=== PATIENT | female | born 1970 | race Caucasian/White ===

== ENCOUNTER 2019-05-08 07:37 | Emergency (ER) | payer SELFPAY ==
[~2019-05-08] VITALS: Ht 160 cm; Wt 67.8 kg
[2019-05-08 07:45] VITALS: BP 123/63; PULSE 76; RESP 18; Ht 160 cm; Wt 67.8 kg
[2019-05-08] MEDS ORDERED: KETOROLAC 60 MG INJ IM STA (07:58)
[2019-05-08] MEDS ORDERED: CYCL10TA7 PO (07:59)
[2019-05-08] MEDS ORDERED: MED4DP PO (07:59)
[2019-05-08] MEDS ORDERED: HYDR-4011 PO (07:59)
[2019-05-08] MEDS ORDERED: NAPR-985 PO (07:59)
[2019-05-08] MEDS ORDERED: DEXAMETHASONE 10 MG/ML 1 ML INJ IM ONE (08:00)
--- NOTE | 2019-05-08 08:25 | ERD ---
ER Documentation Chief Complaint Chief Complaint right lower back pain radiating to right leg, hx sciatica HPI 48-year-old female presenting with pain down her right leg. Patient states she has a history of sciatica under symptoms since they feel the same. She has pain with movement. Denies any numbness or tingling down her legs and denies any changes to urination or bowel movement. Patient took Advil last night but no medication today. She denies any abdominal pain. Denies chest pain or shortness of breath. Denies medical problems. NKDA. Surgical history denies. Social history denies ROS All systems reviewed and are negative except as per history of present illness. Medications Home Meds Active Scripts Cyclobenzaprine Hcl* (Cyclobenzaprine Hcl*) 10 Mg Tablet, 10 MG PO TID, #15 TAB Prov:KEILY ACE PA-C 05/08/19 Naproxen* (Naprosyn*) 500 Mg Tablet, 500 MG PO BID PRN for PAIN AND/OR INFLAMMATION, #30 TAB Prov:KEILY ACE PA-C 05/08/19 Hydrocodone/Acetaminophen (Enterprise 5-325 Tablet) 1 Each Tablet, 1 TAB PO Q6H PRN for PAIN, #7 TAB Prov:KEILY ACE PA-C 05/08/19 Methylprednisolone* (Medrol* DOSE PACK) 4 Mg/Dose-Pack Tab.ds.pk, 4 MG PO . DIRECTED, #1 PACKET Prov:KEILY ACE PA-C 05/08/19 Allergies Allergies: Coded Allergies: No Known Allergy (Unverified , 05/08/19) PMhx/Soc Medical and Surgical Hx: pt denies Medical Hx, pt denies Surgical Hx Hx Alcohol Use: No Hx Substance Use: No Hx Tobacco Use: No Smoking Status: Never smoker FmHx Family History: No diabetes, No coronary disease, No other Physical Exam Vitals Vital Signs Date Temp Pulse Resp B/P (MAP) Pulse Ox O2 O2 Flow FiO2 Time Delivery Rate 05/08/19 97.8 76 18 123/63 100 07:45 (83) Physical Exam GENERAL: The patient is well-appearing, well-nourished, in no acute distress CHEST: Clear to auscultation bilaterally. There are no rales, wheezes or rhonchi. HEART: Regular rate and rhythm. No murmurs, clicks, rubs or gallops. ABDOMEN:Soft, nontender and nondistended. Good bowel sounds. No rebound or guarding. No gross peritonitis. No gross organomegaly or masses. No Lorenzana sign or McBurney point tenderness. BACK: No tenderness to palpation down the right paraspinous muscle extending down her right buttocks. EXTREMITIES: Equal pulses bilaterally. There is no peripheral clubbing, cyanosis or edema. No focal swelling or erythema. Full range of motion. Grossly neurovascularly intact. NEUROLOGIC: Alert and oriented. Cranial nerves II through XII intact. Motor strength in all 4 extremities with 5 out of 5 strength. Sensation grossly intact. Normal speech and gait. Babinski negative. DTR 2+ throughout. SKIN: There is no apparent rash or petechiae. The skin is warm and dry. Results 24 hrs Laboratory Tests Test 05/08/19 08:11 POC Beta HCG, Qualitative NEGATIVE Current Medications Medications Dose Sig/Milo Start Time Status Last (Trade) Ordered Route PRN Stop Time Admin Dose Reason Admin Ketorolac 60 mg ONCE STAT 05/08/19 DC 05/08/19 Tromethamine IM 07:58 08:13 (Toradol) 05/08/19 07:59 10 mg ONCE ONCE 05/08/19 DC 05/08/19 Dexamethasone IM 08:00 08:13 (Decadron) 05/08/19 08:01 Procedures/MDM ER course: Decadron and Toradol given ED. Patient is driving so no Valium was given. MDM: 48-year-old female presenting with back pain. I have low suspicion for discitis or epidural abscess. Patient does not have midline tenderness and vitals are stable. I have low suspicion for acute fracture dislocation as patient has no history of traumatic injury. I have low suspicion for cauda equina as patient has normal strength to the lower extremities. No saddle anesthesia normal urination bowel movement. Patient is discharged with supportive medications and told to follow-up with primary care within 1 to 2 days for close evaluation. She is told if symptoms to the ER. All questions answered at discharge Departure Diagnosis: Primary Impression: Back pain Condition: Stable Patient Instructions: Back Pain W/ Sciatica Referrals: [facility] YOU HAVE RECEIVED A MEDICAL SCREENING EXAM AND THE RESULTS INDICATE THAT YOU DO NOT HAVE A CONDITION THAT REQUIRES URGENT TREATMENT IN THE EMERGENCY DEPARTMENT. FURTHER EVALUATION AND TREATMENT OF YOUR CONDITION CAN WAIT UNTIL YOU ARE SEEN IN YOUR DOCTORS OFFICE WITHIN THE NEXT 1-2 DAYS. IT IS YOUR RESPONSIBILITY TO MAKE AN APPOINTMENT FOR FOLOW-UP CARE. IF YOU HAVE A PRIMARY DOCTOR --you should call your primary doctor and schedule an appointment IF YOU DO NOT HAVE A PRIMARY DOCTOR YOU CAN CALL OUR PHYSICIAN REFERRAL HOTLINE AT IF YOU CAN NOT AFFORD TO SEE A PHYSICIAN YOU CAN CHOSE FROM THE FOLLOWING [facility] [address] [facility] [address] [facility] [facility] [address] [facility] [address] [facility] [address] [facility]. [facility]. [address] Additional Instructions: FOLLOW UP WITH YOUR PRIMARY CARE PHYSICIAN TOMORROW.Return to this facility if you are not improving as expected. KEILY ACE PA-C May 08, 2019 08:25
== END 2019-05-08 08:16 | disposition home or self-care (01) ==
LOC: FTE 07:37
DX: M54.5 Low back pain (principal)
CPT/HCPCS: 81025; 96372; 99284; J1100; J1885